=== PATIENT | male | born 1960 | race Caucasian/White ===

== ENCOUNTER 2017-03-17 09:56 | Emergency (ER) | payer OTHER ==
[~2017-03-17] VITALS: Ht 188 cm; Wt 99.8 kg
--- NOTE | ~2017-03-17 | HC ---
[facility] [place] [address] CONSULTATION Name: ARRON RASCON Room #: [facility]P [facility] MESAMarielyMariely#: [id number] Admission: 03/17/17 Attend Phys: Discharge: 03/17/17 Date of : 64 Report #: [id number] THIS REPORT FOR: //name// CC: [facility] physician/PCP Jose Manuel Garcias DATE OF SERVICE: 03/17/2017 REASON FOR CONSULTATION: Possible peritonsillar abscess history. HISTORY OF PRESENT ILLNESS: The patient is a 56-year-old gentleman who presented to the Emergency Department for a persistent history of sore throat and "swelling." The patient states for the last 6 days, he has had a mild sore throat, generalized fatigue and a mild headache. He has noted his voice has been somewhat muffled for the past 3-4 days and is not progressing. He has not had this problem in the recent past, but did have a history of a similar problem in the [facility] 17-20 years ago, although at that time, the patient states that his symptoms were much more progressed. The patient denies any dyspnea, shortness of breath, myalgias or malaise. The patient rates his pain on a scale of 2/10. He denies any otalgia. He denies any trismus. He denies any difficulty with breathing comfortably through his nares, denies any difficulty with holding and swallowing his secretions. No known contacts at home who are ill. While in the Emergency Department, he was given some IV clindamycin and IV Decadron. He had a CT scan which was suggestive of a possible peritonsillar abscess. ALLERGIES TO MEDICATION: PENICILLIN. MEDICATIONS ON ADMISSION: None. PAST MEDICAL AND SURGICAL HISTORY: Notable for previous inguinal herniorrhaphy. REVIEW OF SYSTEMS: Negative at this time for any known GI, , cardiovascular or pulmonary history. PHYSICAL EXAMINATION: A gentleman who appears to be in no acute distress. He was lying comfortably in a supine position in his ER gurney. He was slightly tachycardic, white count of 15,000. Pulse ox was normal on room air. Examination of the ears was unremarkable. Nasal mucous membranes were pink and moist. Neck palpates without any significant tenderness. He has some very mild MANUEL adenopathy that was minimally to mildly tender, it is equal bilaterally. No posterior adenopathy is noted. Examination of the oral cavity demonstrates the patient has zero trismus. He is able to open his mouth for excursion. The mucosa is very moist. Dentition is fairly normal. Examination of the tongue was unremarkable. Uvula shows moderate edema. There is some generalized [address] [address] CONSULTATION Name: ZHOUCOLLEENARRON Room #: DEP Anmol#: [id number] Admission: 03/17/17 Attend Phys: Discharge: 03/17/17 Date of : 64 Report #: [id number] bilateral edema across the soft palate. There is the possibility of slight fullness and slight erythema over the left superior tonsillar region and soft palate. By digital palpation, this area is not firm or fluctuant to touch and was not particularly painful. Left versus right tonsillar size noted. The oropharyngeal mucosa is unremarkable. There are no signs of exudates on the tonsil tissue. I examined the CT scan which does show tonsillar enlargement. There is a question of a somewhat horseshoe shape or lenticular-shaped density on the left greater than right tonsil. This is slightly lower than the normal anticipated area of a peritonsillar abscess. Given this slight dense finding, I recommended to the patient that we go ahead and try aspiration of the area. This was performed applying topical anesthesia in the form of Hurricaine spray over the left superior tonsillar region and injecting 1.5 mL of 1% Xylocaine 1:100,000 epinephrine over the superior tonsillar pillar. After waiting several minutes, I used an 18-gauge needle on a 10 mL control syringe and made three consecutive passes starting medial and progressing laterally angling the needle in a posterior and slightly inferior direction. These were placed back nearly 1.5 cm from the entrance into the soft tissue and at no time aspirate any fluids. ASSESSMENT: History of a fluctuating sore throat and slightly muffled voice. My diagnosis is more likely peritonsillar cellulitis than abscess. Given the patient's clinical presentation, it is more consistent with cellulitis given the lack of trismus, the lack of a firm bulging in the peritonsillar pillar region and the low level of pain. I did recommend the patient receive outpatient oral Decadron and clindamycin for a 10-day course. He can follow up in my office or the hospital, if his clinical condition worsens. This was discussed with both Dr. Garcias and the patient. By: [phone] Juventino Escoto MD /lloyd
--- NOTE | ~2017-03-17 | EKG ---
[address] [place] [address] ELECTROCARDIOGRAM REPORT Name: ARRON RASCON [facility] [id number] Admission: 03/17/17 Attend Phys: Discharge: 03/17/17 Date of : 64 Report #: [id number] THIS REPORT FOR: //name// [facility] ED Test Date: 2017-03-17 Test Time: 10:15:16 Pat Name: ARRON RASCON Department: Room: [facility] Gender: M Agriculture Consultant: Giovany CHATMAN : 1960 Requested By: Charline Garcias Order Number: [id number] MD: Laron Bennett Measurements Intervals [place] Rate: 106 P: 63 OK: 145 QRS: 73 QRSD: 88 T: 27 QT: 318 QTc: 423 Interpretive Statements Sinus tachycardia RSR' in V1 or V2, right VCD No previous ECG available for comparison Electronically Signed On 03-17-2017 16:34:00 CDT by Laron Bennett [email or web address] <ELECTRONICALLY SIGNED> By: Laron Bennett MD, [facility] 03/17/17 1634 [id number] Laron Bennett MD, FACC /EPI
[2017-03-17 09:57] VITALS: BP 142/98
[2017-03-17] MEDS ORDERED: IBUPROFEN 200200 M1 PO (10:00)
[2017-03-17 10:28] LABS: HEMATOCRIT 42.1 % (42.0-52.0); HEMOGLOBIN 14.4 gm/dL (14.0-18.0); MANUAL DIFF YES; MCHC 34.2 g/dL (28.0-37.0); MCV 84.9 fL (80.0-100.0); PLATELET COUNT 278 thou/uL (150-400); RBC 4.96 mil/uL (4.50-6.00); RDW 13.3 % (10.5-14.5); WBC 15.7 thou/uL (4.0-11.0)
[2017-03-17 10:40] LABS: CREATININE 1.2 mg/dL (0.7-1.3); POTASSIUM 3.8 mmol/L (3.5-5.1)
[2017-03-17 11:42] LABS: ABSOLUTE NEUTROPHILS 13.5 thou/uL (1.4-8.2); ANISOCYTOSIS SLIGHT; ATYPICAL LYMPHS 1 %; TOTAL CELL COUNT 100
[2017-03-17] MEDS ORDERED: CLEOCIN HCL150 M1 PO (13:20)
[2017-03-17] MEDS ORDERED: MEDROLDOSEPACK PO (13:20)
[2017-03-17] MEDS ORDERED: PREDNISONE 20 M20 MG PO (13:34)
[2017-03-17 13:57] VITALS: BP 143/98
== END 2017-03-17 13:57 | disposition home or self-care (01) ==
LOC: ER 09:56 → EROBS 11:36 → ER 11:36
PROVIDERS: Emergency Medicine
DX: J36 Peritonsillar abscess (principal); A41.9 Sepsis, unspecified organism; D72.829 Elevated white blood cell count, unspecified; R50.9 Fever, unspecified; Z88.0 Allergy status to penicillin